=== PATIENT | female | born 1990 | race Caucasian/White ===

== ENCOUNTER 2017-06-08 18:21 | Inpatient (IN) | payer OTHER ==
[~2017-06-08] VITALS: Ht 170.2 cm; Wt 110.2 kg
[2017-06-08 21:24] LABS: UA SPECIFIC GRAVITY >=1.030 (1.005-1.035); microscopic required? YES; urine erythrocyte 3+ (NEGATIVE)
[2017-06-08 21:25] LABS: BASOPHIL % 0.6 % (0-2); PLATELET COUNT 265 x10^3mcL (130-400); RED CELL DISTRIBUTION WIDTH 13.8 % (11.5-14.5)
[2017-06-08 21:31] LABS: CALCIUM 8.9 mg/dL (8.5-10.1); CARBON DIOXIDE 24.6 mmol/L (21-32); CHLORIDE SERUM 106 mmol/L (98-107); CREATININE SERUM 0.8 mg/dL (0.6-1.0); GFR1 > 60 mL/min; GLUCOSE SERUM 94 mg/dL (74-106); POTASSIUM SERUM 3.7 mmol/L (3.5-5.1); SODIUM SERUM 140 mmol/L (136-145)
[2017-06-08 21:35] LABS: ALBUMIN 3.5 g/dL (3.4-5.0); ALKALINE PHOSPHATASE 70 U/L (46-116); ALT/SGPT 25 U/L (14-59); AST/SGOT 17 U/L (15-37); BILIRUBIN TOTAL 0.3 mg/dL (0.20-1.00); TOTAL PROTEIN, SERUM 7.4 g/dL (6.4-8.2)
[2017-06-09 01:13] LABS: AMPHETAMINE QUAL UR NONE DETECTED (NEG <=1000)
[2017-06-09 10:21] LABS: T3 TOTAL 0.66 ng/mL
[2017-06-09] MEDS ORDERED: ZOLOFT25 MG (10:25)
[2017-06-09] MEDS ORDERED: PROGESTERONE100 M1 (10:25)
[2017-06-09] MEDS ORDERED: ABILIFY5 M1 (10:25)
[2017-06-09 10:29] LABS: MAGNESIUM 1.9 mg/dL (1.8-2.4); PHOSPHOROUS 2.9 mg/dL (2.5-4.9)
[2017-06-09 10:30] LABS: CHOLESTEROL/HDL RATIO 3.4
[2017-06-09 11:24] LABS: FREE T4 1.03 ng/dL (0.76-1.46); T4(THYROXINE) 7.2 ug/dL (4.7-13.3)
[2017-06-09 12:06] VITALS: BP 122/81
== END 2017-06-09 19:52 | disposition left against medical advice (07) | DRG 917 ==
LOC: ED 18:21 → DU 06-09 08:15
PROVIDERS: Emergency Medicine Emergency Medical Services; ADMIT Family Medicine
DX: T43.592A Poisoning by other antipsychotics and neuroleptics, intentional self-harm, initial encounter (principal); N17.0 Acute kidney failure with tubular necrosis; L03.115 Cellulitis of right lower limb; F25.0 Schizoaffective disorder, bipolar type; S70.371A Other superficial bite of right thigh, initial encounter; T43.222A Poisoning by selective serotonin reuptake inhibitors, intentional self-harm, initial encounter; T38.5X2A Poisoning by other estrogens and progestogens, intentional self-harm, initial encounter; Y92.018 Other place in single-family (private) house as the place of occurrence of the external cause; R31.9 Hematuria, unspecified; Z98.84 Bariatric surgery status; Z68.38 Body mass index [BMI] 38.0-38.9, adult
CPT/HCPCS: 83880; 84439; G0480; J1956; J3490; J7030

== ENCOUNTER 2020-06-28 17:30 | Emergency (ER) | payer OTHER ==
[~2020-06-28] VITALS: Ht 170.2 cm; Wt 111.1 kg
[~2020-06-28 17:30] MED LIST: ABILIFY5 M1; PROGESTERONE100 M1; ZOLOFT25 MG
[2020-06-28 17:38] VITALS: BP 136/93; Ht 170.2 cm; Wt 111.1 kg
== END 2020-06-28 18:19 | disposition home or self-care (01) ==
LOC: ED 17:30
DX: L03.116 Cellulitis of left lower limb (principal); F17.210 Nicotine dependence, cigarettes, uncomplicated